=== PATIENT | male | born 1990 | race Caucasian/White ===

== ENCOUNTER → 2018-09-27 | Outpatient (CLI) | payer BC ==
--- NOTE | 2018-09-27 09:29 | RAD ---
Ultrasound of the scrotum History: Testicular pain and swelling for 5 days. FINDINGS: Study interpreted without the benefit of real-time observation. Right testicle measures 3.9 x 3.6 x 2.4 cm. There are tiny echogenic foci identified within the right testicle, compatible with microlithiasis. Intact blood flow. Small right epididymal head cyst measuring 2.5 mm. Right epididymis may be mildly hypervascular. There is a small right hydrocele, containing some echogenic material which appears mobile during scanning. Left testicle measures 3.8 x 3.1 x 2.2 cm with intact blood supply. There are 2 small epididymal head cyst on the left, largest measures 3 mm. Small left hydrocele. IMPRESSION: 1. Mild right testicle microlithiasis. 2. The right epididymis may be slightly hypervascular, consider right epididymitis. 3. Small right hydrocele containing echogenic material, can indicate complication with hemorrhage or infection. 4. Short-term ultrasound follow-up could be of benefit. Electronically signed by: Krystian Mason MD (09/27/2018 9:26 AM) [id number]
== END | disposition home or self-care (01) ==
LOC: US 08:17
PROVIDERS: ATTEND Registered Nurse
DX: N43.3 Hydrocele, unspecified (principal); N50.3 Cyst of epididymis
CPT/HCPCS: 76870